=== PATIENT | male | born 1995 | race Caucasian/White ===

== ENCOUNTER 2024-09-04 09:34 | Emergency (ER) | payer OTHER, SELFPAY ==
[2024-09-04] VITALS (9 sets, daily range): BP systolic 128–147; BP diastolic 60–93; PULSE 70–101; RESP 16; TEMP 36.9; O2SAT 98–100; BMI 22.6
--- NOTE | 2024-09-04 10:35 | ED_ITS ---
HPI - URI/Sore Throat General Chief Complaint: Upper Respiratory Symptoms Stated Complaint: Not feeling good, Throwing up, Can't eat Time Seen by Provider: 09/04/24 10:33 History of Present Illness HPI Narrative: Patient is a healthy 28-year-old male who presents today with variety of symptoms. He has had upper respiratory like symptoms fever or chills ongoing nausea. He has been drinking liquid IV but he reports his urine is still dark. He has ongoing abdominal pain. No significant cough or sore throat. Reports he has been able to eat toast. Generally feeling unwell. He was children at home they are not sick. He can not swallow pills due to an ongoing problem. It sounds like he has esophageal stricture which need a dilating but still will only take liquid medicine Related Data Previous Rx's Medication Instructions Recorded omeprazole 20 mg capsule,delayed 20 mg PO DAILY #30 caps 09/04/24 release ondansetron 4 mg disintegrating 4 mg PO Q8H PRN nausea and 09/04/24 tablet vomiting #10 tabs Allergies Allergy/AdvReac Type Severity Reaction Status Date / Time No Known Drug Allergies Allergy Verified 09/04/24 10:55 Exam Initial Vital Signs Initial Vital Signs: Vital Signs Temperature 98.4 F 09/04/24 09:41 Pulse Rate 101 H 09/04/24 09:41 Respiratory Rate 16 09/04/24 09:41 Blood Pressure 147/93 H 09/04/24 09:41 Pulse Oximetry 100 09/04/24 09:41 Oxygen Delivery Method Room Air 09/04/24 09:41 GENERAL: Alert well-appearing 28-year-old male and in no acute distress. HEENT: Head atraumatic,EOMI, pupils reactive, face symmetric, moist mucous membranes CARDIOVASCULAR: Regular rate and rhythm without murmurs, rubs or gallops. RESPIRATORY: Breath sounds equal bilaterally, no wheezes rales or rhonchi. ABDOMEN: Soft, tender epigastric and right upper quadrant area no guarding no rebound no significant distention EXTREMITIES: Normal range of motion, no clubbing or edema. Neurovascularly intact NEUROLOGICAL: Alert and oriented x4.Normal gait and speech. Cranial nerves II through XII grossly intact. SKIN: Warm, dry, no laceration, no petechiae, no rashes or lesions. Course Orders Ordered: ED Orders 09/04/24 10:05 Covid-19 + FLU A/B + RSV - PCR Stat 09/04/24 10:50 CBC Auto Diff [Complete Blood Count AUTO DIFF] Stat CMP [Comprehensive Metabolic Panel] Stat Lipase Stat 09/04/24 11:45 US abdomen limited Stat Discontinued Medications Sodium Chloride (Normal Saline 0.9%) 1,000 mls @ 1,000 mls/hr IV BOLUS ONE Stop: 09/04/24 11:43 Last Admin: 09/04/24 10:56 Dose: 1,000 mls/hr Documented By: SHERRI Ketorolac Tromethamine (Ketorolac 30 Mg/Ml Vial) 15 mg IV NOW ONE Stop: 09/04/24 10:45 Last Admin: 09/04/24 10:56 Dose: 15 mg Documented By: SHERRI Vital Signs Vital signs: Vital Signs - 8 hr 09/04/24 10:00 09/04/24 10:30 09/04/24 11:00 Pulse Rate 77 70 75 Blood Pressure Pulse Oximetry 98 99 100 09/04/24 11:30 09/04/24 12:00 09/04/24 12:30 Pulse Rate 79 81 80 Blood Pressure Pulse Oximetry 100 100 100 09/04/24 12:43 09/04/24 12:43 Pulse Rate 73 Blood Pressure 128/60 Pulse Oximetry 100 MDM - URI/Sore Throat Lab Data 09/04/24 10:50 09/04/24 10:50 Labs: Lab Results 09/04/24 09/04/24 Range/Units 10:05 10:50 WBC 7.3 (4.5-11.0) X10^3/uL RBC 4.74 (4.5-5.9) X10^6/uL Hgb 14.5 (13.5-17.5) g/dL Hct 40.9 L (41-53) % MCV 86.3 (80-100) fL MCH 30.5 (26-34) PG MCHC 35.3 (30-36) % RDW 15.0 H (11.6-14.8) % Plt Count 241 (150-400) X10^3/uL Neut % (Auto) 84.7 H (50-75) % Lymph % (Auto) 11.1 L (25-40) % [place] % (Auto) 3.7 (3-14) % Eos % (Auto) 0.3 L (2-4) % Baso % (Auto) 0.2 (0-2) % Neut # (Auto) 6200 (7941-8434) /uL Lymph # (Auto) 800 L (5535-6995) /uL [place] # (Auto) 300 (0-900) /uL Eos # (Auto) 0 (0-450) /uL Baso # (Auto) 0 (0-100) /uL Sodium 138 (137-145) mmol/L Potassium 3.8 (3.4-5.1) mmol/L Chloride 104 (98-107) mmol/L Carbon Dioxide 20 L (22-32) mmol/L BUN 16 (9-20) mg/dL Creatinine 0.81 (0.66-1.25) mg/dL Estimated GFR > 60 (>60) mL/min BUN/Creatinine Ratio 19.8 (6-22) Glucose 88 (70-100) mg/dL Calcium 9.7 (8.4-10.2) mg/dL Total Bilirubin 1.9 H (0.2-1.3) mg/dL AST 35 (17-59) IU/L ALT 36 (<50) IU/L Alkaline Phosphatase 58 (38-126) U/L Total Protein 8.5 H (6.3-8.2) g/dL Albumin 5.1 H (3.5-5.0) g/dL Globulin 3.4 (1.7-4.1) g/dL Albumin/Globulin Ratio 1.5 (1.0-2.8) Lipase 47 (23-300) U/L SARS-CoV-2 (PCR) Negative (Negative) Influenza A (RT-PCR) Flu a negative (NEGATIVE) Influenza B (RT-PCR) Flu b negative (NEGATIVE) RSV (PCR) Negative (Negative) Imaging Data US - abdomen: Radiologist's Impression: PROCEDURE: US ABDOMEN LIMITED INDICATIONS: ruq TECHNIQUE: Real-time scanning was performed of the abdominal and retroperitoneal organs, with image documentation. COMPARISON: None. FINDINGS: Liver: Liver is normal in size and mildly increased in echogenicity. Gallbladder: No gallstones. No wall thickening. No pericholecystic edema. Negative sonographic Story's sign. Biliary ducts: Intrahepatic bile ducts are non-dilated. Extrahepatic bile duct caliber measures 3.4 mm. Normal is 6-7 mm or less in diameter, or 10 mm or less post-cholecystectomy. Pancreas: Visualized portions of the pancreas are sonographically normal. Miscellaneous: No free abdominal fluid. IMPRESSION: 1. Normal gallbladder. 2. Diffusely increased hepatic echogenicity is nonspecific, but most commonly encountered in the setting of hepatic steatosis. However, other causes of hepatocellular disease are not excluded. Recommend clinical correlation. Approved by: Alton Burrell M.D. on 09/04/2024 at 12:39 MDM Narrative Medical decision making narrative: Patient 28-year-old male presenting today with upper respiratory like illness ongoing for the last 4-5 days. He has been trying to stay hydrated eating some toast. But now having some epigastric pain and right upper quadrant pain on exam. Blood work has been reviewed No leukocytosis no anemia no left shift Electrolytes within normal limits carbon dioxide Bilirubin 1.9 AST 35 ALT 36 alk-phos 58 lipase 47 Viral panel negative Ultrasound no evidence of cholelithiasis or acute cholecystitis He was tolerating oral fluids overall feels better after saline and Toradol. At this time no need for antibiotics supportive care only Discharge Plan Departure Patient Disposition: Home Clinical Impression: Viral illness Instructions: DI for Viral Syndrome Activity Restrictions/Additional Instructions: *You have been diagnosed with viral illness *What to do: At this time increase fluids as tolerated blood work and imaging overall reassuring today *Continue to take medications as directed Zofran 4 mg every 8 hours for nausea or vomiting Omeprazole 20 mg once a day *Follow up with your primary care provider in 2-3 days or call [phone] *Return to ER if you should have increasing abdominal pain persistent vomiting [or] any new, worsening or concerning symptoms Prescriptions: New omeprazole 20 mg capsule,delayed release(DR/EC) 20 mg PO DAILY Qty: 30 0RF ondansetron 4 mg tablet,disintegrating 4 mg PO Q8H PRN (Reason: nausea and vomiting) Qty: 10 0RF Stand Alone Forms: Patient Portal/API/Survey
[2024-09-04 10:47] LABS: Influenza A - CEPHEID Flu A NEGATIVE (NEGATIVE); Influenza B - CEPHEID Flu B NEGATIVE (NEGATIVE); Respiratory Syncytial Virus Negative (Negative)
[2024-09-04 10:48] LABS: COVID-19 CEPHEID 4-PLEX PCR Negative (Negative)
[2024-09-04] MEDS: SODIUM CHLORIDE 0.9% 1,000 ML 1000 ML IV (10:56)
[2024-09-04] MEDS: KETOROLAC 30 MG/ML VIAL 15 MG IV (10:56)
[2024-09-04 11:02] LABS: Add Manual Diff / Slide Review NO; Basophils Absolute Auto 0 /uL (0-100); Basophils Percent Auto 0.2 % (0-2); Eosinophils Absolute Auto 0 /uL (0-450); Eosinophils Percent Auto 0.3 % (2-4); Hematocrit 40.9 % (41-53); Hemoglobin 14.5 g/dL (13.5-17.5); Lymphocytes Absolute Auto 800 /uL (1100-4500); Lymphocytes Percent Auto 11.1 % (25-40); Mean Corpuscular HGB Conc 35.3 % (30-36); Mean Corpuscular Hemoglobin 30.5 PG (26-34); Mean Corpuscular Volume 86.3 fL (80-100); Monocytes Absolute Auto 300 /uL (0-900); Monocytes Percent Auto 3.7 % (3-14); Neutrophils Absolute Auto 6200 /uL (1500-7000); Neutrophils Percent Auto 84.7 % (50-75); Platelet Count 241 X10^3/uL (150-400); Red Blood Cell Count 4.74 X10^6/uL (4.5-5.9); White Blood Cell Count 7.3 X10^3/uL (4.5-11.0)
[2024-09-04 11:14] LABS: Alanine Aminotransferase 36 IU/L (<50); Albumin 5.1 g/dL (3.5-5.0); Albumin Globulin Ratio 1.5 (1.0-2.8); Alkaline Phosphatase 58 U/L (38-126); Aspartate Aminotransferase 35 IU/L (17-59); BUN Creatinine Ratio 19.8 (6-22); Bilirubin Total 1.9 mg/dL (0.2-1.3); Blood Urea Nitrogen 16 mg/dL (9-20); Calcium 9.7 mg/dL (8.4-10.2); Carbon Dioxide 20 mmol/L (22-32); Chloride 104 mmol/L (98-107); Estimated Glomerular Filt Rate > 60 mL/min (>60); Globulin 3.4 g/dL (1.7-4.1); Glucose 88 mg/dL (70-100); HEMOLYSIS < 15 (0-50); Lipase 47 U/L (23-300); Potassium 3.8 mmol/L (3.4-5.1); Sodium 138 mmol/L (137-145); Total Protein 8.5 g/dL (6.3-8.2)
--- NOTE | 2024-09-04 11:45 | DI.US.S_ITS ---
PROCEDURE: US ABDOMEN LIMITED INDICATIONS: ruq TECHNIQUE: Real-time scanning was performed of the abdominal and retroperitoneal organs, with image documentation. COMPARISON: None. FINDINGS: Liver: Liver is normal in size and mildly increased in echogenicity. Gallbladder: No gallstones. No wall thickening. No pericholecystic edema. Negative sonographic Story's sign. Biliary ducts: Intrahepatic bile ducts are non-dilated. Extrahepatic bile duct caliber measures 3.4 mm. Normal is 6-7 mm or less in diameter, or 10 mm or less post-cholecystectomy. Pancreas: Visualized portions of the pancreas are sonographically normal. Miscellaneous: No free abdominal fluid. IMPRESSION: 1. Normal gallbladder. 2. Diffusely increased hepatic echogenicity is nonspecific, but most commonly encountered in the setting of hepatic steatosis. However, other causes of hepatocellular disease are not excluded. Recommend clinical correlation. Approved by: Alton Burrell M.D. on 09/04/2024 at 12:39
== END 2024-09-04 12:56 | disposition home or self-care (01) ==
PROVIDERS: Emergency Provider Emergency Medicine
DX: B34.9 Viral infection, unspecified (principal); R10.13 Epigastric pain; R10.11 Right upper quadrant pain
CPT/HCPCS: 0241U; 36415; 76705; 80053; 83690; 85025; 96374; 99284; J1885

== ENCOUNTER 2024-09-06 09:00 | Emergency (ER) | payer OTHER, SELFPAY ==
[2024-09-06] VITALS (8 sets, daily range): BP systolic 118–141; BP diastolic 77–89; PULSE 60–83; RESP 14–16; TEMP 37.1; O2SAT 98–100; BMI 21.8
--- NOTE | 2024-09-06 09:58 | ED.GENADULT ---
HPI - General Adult General Chief complaint: Abdominal Pain Stated complaint: Still not feeling well from last ER visit Time Seen by Provider: 09/06/24 09:39 Source: patient Mode of arrival: Family Vehicle History of Present Illness HPI narrative: 28-year-old gentleman with no significant medical history on day 3 of viral gastroenteritis type symptoms. Was here 48 hours ago with blood work that was reassuring at that time and influenza, COVID and RSV were negative. He continues to complain body aches, had diarrhea yesterday, no diarrhea or vomiting today but wants to feel better enough that he can play with his kids. Complains that he is ?exhausted?. No fevers, no localizing pain, no cough no headaches no palpitations Related Data Previous Rx's Medication Instructions Recorded omeprazole 20 mg capsule,delayed 20 mg PO DAILY #30 caps 09/04/24 release ondansetron 4 mg disintegrating 4 mg PO Q8H PRN nausea and 09/04/24 tablet vomiting #10 tabs Allergies Allergy/AdvReac Type Severity Reaction Status Date / Time No Known Drug Allergies Allergy Verified 09/04/24 10:55 Review of Systems Review of Systems Narrative: Pertinent positive and negative findings as per HPI Patient History Social History Smoking Status: Former smoker Smoking Status: Former smoker tobacco type: cigarettes Exam Initial Vital Signs Initial Vital Signs: Vital Signs Temperature 98.7 F 09/06/24 09:23 Pulse Rate 83 09/06/24 09:23 Respiratory Rate 14 09/06/24 09:23 Blood Pressure 141/86 H 09/06/24 09:23 Pulse Oximetry 99 09/06/24 09:23 Oxygen Delivery Method Room Air 09/06/24 09:23 General: Fatigued with circles under his eyes but, in no acute distress. Able to give a complete and coherent history. HEENT: Moist mucous membranes, normal sclera with reactive pupils, Respiratory: Lungs are clear to auscultation, no wheezing no rales no rhonchi. Full and symmetrical air movement Cardiac: Regular rate and rhythm no murmurs no bruits Abdomen: Soft, diffuse tenderness with, no rebound or guarding, Skin: Warm and dry, no rashes Neurologic: Grossly neurologically intact with no obvious asymmetries or abnormalities Psych: Cooperative, appropriate insight and affect Course Orders Ordered: ED Orders 09/06/24 10:05 EKG-12 Lead Stat 09/06/24 10:21 Complete Blood Count AUTO DIFF Stat Comprehensive Metabolic Panel Stat Lipase Stat Sodium Chloride (Normal Saline 0.9%) 1,000 mls @ 1,000 mls/hr IV BOLUS ONE Stop: 09/06/24 11:07 Last Admin: 09/06/24 10:33 Dose: 1,000 mls/hr Documented By: CHRISTA Ondansetron HCl (Ondansetron 4 Mg/2 Ml Inj) 4 mg IV NOW PRN PRN Reason: Nausea And Vomiting Ondansetron HCl (Ondansetron 4 Mg Odt) 4 mg PO NOW PRN PRN Reason: Nausea And Vomiting Discontinued Medications Ondansetron HCl (Ondansetron 4 Mg/2 Ml Inj) 4 mg IV NOW ONE Stop: 09/06/24 10:09 Last Admin: 09/06/24 10:34 Dose: 4 mg Documented By: CHRISTA Vital Signs Vital signs: Vital Signs - 8 hr 09/06/24 09:23 Temperature 98.7 F Pulse Rate 83 Respiratory Rate 14 Blood Pressure 141/86 H Pulse Oximetry 99 Oxygen Delivery Method Room Air Medical Decision Making Lab Data 09/06/24 10:21 09/06/24 10:21 Labs: Lab Results 09/06/24 Range/Units 10:21 WBC 5.5 (4.5-11.0) X10^3/uL RBC 4.45 L (4.5-5.9) X10^6/uL Hgb 13.7 (13.5-17.5) g/dL Hct 38.1 L (41-53) % MCV 85.6 (80-100) fL MCH 30.7 (26-34) PG MCHC 35.9 (30-36) % RDW 14.8 (11.6-14.8) % Plt Count 234 (150-400) X10^3/uL Neut % (Auto) 72.8 (50-75) % Lymph % (Auto) 19.8 L (25-40) % [place] % (Auto) 6.3 (3-14) % Eos % (Auto) 0.5 L (2-4) % Baso % (Auto) 0.6 (0-2) % Neut # (Auto) 4000 (1568-2129) /uL Lymph # (Auto) 1100 (3117-3880) /uL [place] # (Auto) 300 (0-900) /uL Eos # (Auto) 0 (0-450) /uL Baso # (Auto) 0 (0-100) /uL Sodium 139 (137-145) mmol/L Potassium 3.7 (3.4-5.1) mmol/L Chloride 104 (98-107) mmol/L Carbon Dioxide 23 (22-32) mmol/L BUN 9 (9-20) mg/dL Creatinine 0.77 (0.66-1.25) mg/dL Estimated GFR > 60 (>60) mL/min BUN/Creatinine Ratio 11.7 (6-22) Glucose 94 (70-100) mg/dL Calcium 9.8 (8.4-10.2) mg/dL Total Bilirubin 1.3 (0.2-1.3) mg/dL AST 31 (17-59) IU/L ALT 32 (<50) IU/L Alkaline Phosphatase 54 (38-126) U/L Total Protein 8.1 (6.3-8.2) g/dL Albumin 5.0 (3.5-5.0) g/dL Globulin 3.1 (1.7-4.1) g/dL Albumin/Globulin Ratio 1.6 (1.0-2.8) Lipase 50 (23-300) U/L MDM Narrative Medical decision making narrative: CC: Continued body aches for 3 days Data collected from: patient Medical records reviewed: ER note from 09/04 reviewed with similar complaints Differential considered: Viral syndrome, gastroenteritis, diverticulitis Exam documented above, pertinent findings include: Patient has slight circles under his eyes but is otherwise moderately well hydrated, diffuse abdominal tenderness without evidence of acute abdomen Lab Test results independently reviewed as above. Pertinent findings: CBC is unremarkable Chemistries are normal Lipase is unremarkable Independently reviewed EKG: Sinus bradycardia at a rate of 59 with no acute ischemic changes Treatments: Parenteral fluids, IV Zofran Discussion: 28-year-old gentleman with what sounds like simple viral gastroenteritis on day 3 still feeling unwell, slightly better after fluids. No evidence of sepsis, acute gallbladder issues, acute abdomen. Discussed anticipated course of resolution of viral gastroenteritis, use of Zofran to help with nausea and continued hydration. At this time there was no indication for additional imaging or hospitalization and patient is discharged Discharge Plan Departure Patient Disposition: Home Clinical Impression: Gastroenteritis Instructions: DI for Viral Gastroenteritis -- Adult Activity Restrictions/Additional Instructions: I am sorry that you are still feeling poorly. Most viral gastroenteritis is are going to take 5-7 days to begin to feel better. Your labs are again, quite reassuring. Continue using Tylenol to help with the overall body aches and stomach pain, the ondansetron that you have available at home maybe helping prevent you from actually vomiting even though you noted it does not make the nausea go completely away. Continue with a liquid IV and once you start feeling better slowly start adding simple foods back into your diet Prescriptions: No Action omeprazole 20 mg capsule,delayed release(DR/EC) 20 mg PO DAILY Qty: 30 0RF ondansetron 4 mg tablet,disintegrating 4 mg PO Q8H PRN (Reason: nausea and vomiting) Qty: 10 0RF Stand Alone Forms: Patient Portal/API/Survey
[2024-09-06 10:32] LABS: Add Manual Diff / Slide Review NO; Basophils Absolute Auto 0 /uL (0-100); Basophils Percent Auto 0.6 % (0-2); Eosinophils Absolute Auto 0 /uL (0-450); Eosinophils Percent Auto 0.5 % (2-4); Hematocrit 38.1 % (41-53); Hemoglobin 13.7 g/dL (13.5-17.5); Lymphocytes Absolute Auto 1100 /uL (1100-4500); Lymphocytes Percent Auto 19.8 % (25-40); Mean Corpuscular HGB Conc 35.9 % (30-36); Mean Corpuscular Hemoglobin 30.7 PG (26-34); Mean Corpuscular Volume 85.6 fL (80-100); Monocytes Absolute Auto 300 /uL (0-900); Monocytes Percent Auto 6.3 % (3-14); Neutrophils Absolute Auto 4000 /uL (1500-7000); Neutrophils Percent Auto 72.8 % (50-75); Platelet Count 234 X10^3/uL (150-400); Red Blood Cell Count 4.45 X10^6/uL (4.5-5.9); Red Cell Distribution Width 14.8 % (11.6-14.8); White Blood Cell Count 5.5 X10^3/uL (4.5-11.0)
[2024-09-06] MEDS: SODIUM CHLORIDE 0.9% 1,000 ML 1000 ML IV (10:33)
[2024-09-06] MEDS: ONDANSETRON 4 MG/2 ML INJ IV (10:34)
--- NOTE | 2024-09-06 10:42 | EKG_ITS ---
[address] [address] Test Date: 2024-09-06 Pat Name: Azael Meeks Department: [facility] Room: Gender: Male Appointment Manager: RADHA : 1995 Requested By: Order Number: [id number] Reading MD: Kristopher Greenberg MD Measurements Intervals [place] Rate: 59 P: 46 OR: 146 QRS: 23 QRSD: 86 T: 21 QT: 400 QTc: 396 Interpretive Statements Sinus bradycardia Early repolarization Electronically Signed On 09-07-2024 7:39:44 PDT by Kristopher Greenberg MD
[2024-09-06 10:49] LABS: Alanine Aminotransferase 32 IU/L (<50); Albumin Globulin Ratio 1.6 (1.0-2.8); Alkaline Phosphatase 54 U/L (38-126); Aspartate Aminotransferase 31 IU/L (17-59); BUN Creatinine Ratio 11.7 (6-22); Bilirubin Total 1.3 mg/dL (0.2-1.3); Blood Urea Nitrogen 9 mg/dL (9-20); Calcium 9.8 mg/dL (8.4-10.2); Carbon Dioxide 23 mmol/L (22-32); Chloride 104 mmol/L (98-107); Estimated Glomerular Filt Rate > 60 mL/min (>60); Globulin 3.1 g/dL (1.7-4.1); Glucose 94 mg/dL (70-100); HEMOLYSIS < 15 (0-50); Lipase 50 U/L (23-300); Potassium 3.7 mmol/L (3.4-5.1); Sodium 139 mmol/L (137-145); Total Protein 8.1 g/dL (6.3-8.2)
== END 2024-09-06 12:17 | disposition home or self-care (01) ==
PROVIDERS: Emergency Provider Emergency Medicine
DX: K52.9 Noninfective gastroenteritis and colitis, unspecified (principal); R00.1 Bradycardia, unspecified
CPT/HCPCS: 36415; 80053; 83690; 85025; 93005; 93010; 96361; 96374; 99284; J2405

== ENCOUNTER 2025-04-18 00:56 | Emergency (ER) | payer OTHER, BC, SELFPAY ==
[2025-04-18 01:07] VITALS: BP 153/94; PULSE 81; RESP 15; TEMP 36.7; O2SAT 98; BMI 18.6
--- NOTE | 2025-04-18 01:12 | DI.RAD.S_ITS ---
PROCEDURE: XR FINGER RT MIN 2V
--- NOTE | 2025-04-18 01:13 | ED_ITS ---
HPI - Extremity Injury (Upper)
--- NOTE | 2025-04-18 01:13 | ED.UPPEXIN ---
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 Has pain and swelling to the right proximal finger, no skin laceration changes, no gross deformity. No other injuries. He had transient improvement from ibuprofen which seems to be wearing off. Related Data Previous Rx's ?Medication ?Instructions ?Recorded omeprazole 20 mg capsule,delayed 20 mg PO DAILY #30 caps 09/04/24 release ondansetron 4 mg disintegrating 4 mg PO Q8H PRN nausea and 09/04/24 tablet vomiting #10 tabs Allergies Allergy/AdvReac Type Severity Reaction Status Date / Time No Known Drug Allergies Allergy Verified 09/04/24 10:55 Patient History tobacco type: cigarettes Exam Narrative Exam Narrative: GENERAL: Well-developed patient, in mild distress. HEAD: Atraumatic. Normocephalic. EYES: Pupils equal round and reactive. Extraocular motions intact. No scleral icterus. No injection or drainage. ENT: No obvious craniofacial injury patterns. Airway patent. NECK: Trachea midline. Non tender CARDIOVASCULAR: Regular rate and rhythm without murmurs, gallops, or rubs. RESPIRATORY: Clear to auscultation. Breath sounds equal bilaterally. No wheezes, rales, or rhonchi. GASTROINTESTINAL: Abdomen soft, non-tender, nondistended. EXTREMITIES: Swelling and tenderness right middle finger 1st phalanx, no gross deformity, no abrasions or lacerations, full extension with some limitation flexion due to pain. No injury to distal finger, nor to adjacent fingers BACK: Nontender without deformity or crepitance. No flank tenderness. NEURO: AOx3. Motor functions grossly nonfocal. SKIN: No rash or erythema of visible areas Initial Vital Signs Initial Vital Signs: Vital Signs Temperature 98.1 F 04/18/25 01:07 Pulse Rate 81 04/18/25 01:07 Respiratory Rate 15 04/18/25 01:07 Blood Pressure 153/94 H 04/18/25 01:07 Pulse Oximetry 98 04/18/25 01:07 Oxygen Delivery Method Room Air 04/18/25 01:07 Course Orders Ordered: ED Orders 04/18/25 01:12 XR finger RT min 2V Stat Vital Signs Vital signs: Vital Signs - 8 hr 04/18/25 01:07 04/18/25 02:00 Temperature 98.1 F Pulse Rate 81 82 Respiratory Rate 15 16 Blood Pressure 153/94 H 145/88 H Pulse Oximetry 98 97 Oxygen Delivery Method Room Air Room Air MDM - Extremity Injury (Upper) Imaging Data Extremity x-ray #1: Radiologist's Impression: [address] [address] XRay Report Signed Patient: Azael Meeks MR#: [id number] : 1995 Acct:[id number] Age/Sex: 29 / M Date of Service: 04/18/25 Loc: ED Accession Number: [id number] Procedure: XR finger RT min 2V Ordering Provider: Patrick Acosta MD PROCEDURE: XR FINGER RT MIN 2V INDICATIONS: crushed by can of soup; pain/swelling TECHNIQUE: AP hand, 2 views of the 3rd finger(s) acquired. COMPARISON: None. FINDINGS AND IMPRESSION: No displaced fracture or dislocation. No suspicious soft tissue calcifications. If there is high concern for occult injury, consider repeat radiography in about 7 days or cross-sectional imaging. Dictated by: Bobby Morales M.D. on 04/18/2025 at 1:40 Approved by: Bobby Morales M.D. 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 X-ray without fracture or dislocation. Finger splint applied, with Coban wrap to 4th finger. Advised recheck in orthopedic clinic as he has no local PCP. Advice no use of right hand on labor and industry forms until recheck in 2 days, otherwise no new restrictions if modified work available. Labor and industry forms filled out. Offered pain meds, declined, he will use ibuprofen. Follow up with Orthopedic surgery advised. Return precautions discussed. Discharge Plan Departure Patient Disposition: Home Clinical Impression: Contusion of finger Activity Restrictions/Additional Instructions: Contusion bruising of the right middle finger from a large can of soup that fell from a shelf while at work at [employer] earlier today. Painful with any attempted moving, with some swelling. Ibuprofen taken with temporary pain relief to some degree. X-rays obtained, no gross dislocation, no gross fracture. Placed in finger splint with Coban body wrap. Advised not to use affected right hand until recheck. Consider recheck in the next 2 days with your regular doctor, or with local orthopedic surgeon. Contact information given for orthopedic surgery office. Return earlier to this/nearest emergency department for any change worsening symptoms or concerns prior. [place] primary care can be contacted for follow up appointment at [phone]. Orthopedic surgery clinic can be contacted below at the office of on-call orthopedic surgeon Dr. Schmid, you might be directed to 1 of the physician assistants or other providers in the clinic, but they can do close follow up in labor and industry follow up as well. Recheck in primary care or Orthopedic surgery Clinic in the next couple of days. No use of right hand until recheck. Prescriptions: No Action omeprazole 20 mg capsule,delayed release(DR/EC) 20 mg PO DAILY Qty: 30 0RF ondansetron 4 mg tablet,disintegrating 4 mg PO Q8H PRN (Reason: nausea and vomiting) Qty: 10 0RF Referrals: Anibal Schmid MD [Physician, Orthopedic Surgery] Stand Alone Forms: Patient Portal/API, Work Release Note
[2025-04-18 02:00] VITALS: BP 145/88; PULSE 82; RESP 16; O2SAT 97
== END 2025-04-18 02:00 | disposition home or self-care (01) ==
PROVIDERS: Emergency Provider Emergency Medicine
DX: S60.031A Contusion of right middle finger without damage to nail, initial encounter (principal); W20.8XXA Other cause of strike by thrown, projected or falling object, initial encounter; Y92.512 Supermarket, store or market as the place of occurrence of the external cause; Y99.0 Civilian activity done for income or pay
CPT/HCPCS: 29130; 73140; 99281; 99283